=== PATIENT | male | born 1965 | race African-American/Black ===

== ENCOUNTER 2018-10-14 04:08 | Emergency (ER) | payer MEDICARE, OTHER ==
[~2018-10-14] VITALS: Ht 175.3 cm; Wt 99.8 kg
[2018-10-14 04:12] VITALS: BP 137/92
--- NOTE | 2018-10-14 04:12 | NUR ---
ED Nurse Note: Pt was VAN from a street, c/o " I feel like to have a seizure". Pt is A/O X 4, Vital signs stable at this time, waiting orders.
[2018-10-14] MEDS ORDERED: QUETIAPINE FUMA25 MG ORAL (04:16)
[2018-10-14] MEDS ORDERED: GABAPENTIN400 MG ORAL (04:16)
[2018-10-14] MEDS ORDERED: TRAZODONE HCL150 MG ORAL (04:16)
[2018-10-14] MEDS ORDERED: Ketorolac 60mg Inj IM ONE (04:45)
[2018-10-14] MEDS ORDERED: IBUPROFEN600 MG ORAL (04:45)
--- NOTE | 2018-10-14 04:45 | Emergency Room Report ---
History of Present Illness General Chief Complaint: General Complaint Source: Patient Present Illness HPI Is a 52-year-old male with history of seizure, psychiatric history and chronic pain. Patient called [address] because he said he fell he is having a seizure. Also complaining of sciatic pain. Pain is 10 out of 10. No nausea no vomiting. No fever chills. The demented better. Nothing made it worse. He said he felt like he's having a seizure. Said that he's on Dilantin but hasn 't had it for a month. Also said that he is out of his pain medication. Allergies: Coded Allergies: No Known Allergies (Unverified , 10/14/18) Patient History Past Medical History: see triage record, old chart reviewed, seizures Past Surgical History: other Pertinent Family History: none Social History: Reports: drug use - History of cocaine abuse; Denies: smoking Immunizations: other Reviewed Nursing Documentation: PMH: Agreed; PSxH: Agreed Nursing Documentation-PMH Past Medical History: No History, Except For Hx Seizures: Yes Review of Systems Eye: Denies: eye pain, blurred vision ENT: Denies: ear pain, nose congestion, throat swelling Respiratory: Denies: cough, shortness of breath Cardiovascular: Denies: chest pain, palpitations Gastrointestinal: Denies: abdominal pain, diarrhea, nausea, vomiting Musculoskeletal: Reports: back pain; Denies: joint pain Skin: Denies: rash Neurological: Denies: headache, numbness Endocrine: Denies: increased thirst, increased urine Hematologic/Lymphatic: Denies: easy bruising All Other Systems: negative except mentioned in HPI Physical Exam Vital Signs Date Time Temp Pulse Resp B/P (MAP) Pulse Ox O2 Delivery O2 Flow Rate FiO2 10/14/18 04:10 98.2 86 18 138/94 98 Nasal Cannula vitals tripp Sp02 EP Interpretation: reviewed, normal General Appearance: well appearing, no apparent distress, alert Head: normocephalic, atraumatic Eyes: bilateral eye PERRL, bilateral eye EOMI ENT: hearing grossly normal, normal pharynx Neck: full range of motion, supple, no meningismus Respiratory: chest non-tender, lungs clear, normal breath sounds Cardiovascular #1: regular rate, rhythm, no murmur Gastrointestinal: normal bowel sounds, non tender, no mass, no organomegaly, no bruit, non-distended Musculoskeletal: back normal - diffuse pain. no trauma, gait/station normal, normal range of motion Neurologic: alert, oriented x3 Psychiatric: mood/affect normal Skin: warm/dry Medical Decision Making Diagnostic Impression: Primary Impression: Low back pain Qualified Codes: M54.5 - Low back pain ER Course Patient presents with exacerbation of his chronic pain. Initially he claimed that he is out of his pain medication and need to be get up next week. When I told him that I checked the [employer] system and he just picked up 120 tablets of [place] 10/325 she has 5 days ago. He then claimed that he had kicked out of his apartment that he staying with a friend and that person has his medicine. He has a book back to has a hospital sticker for last month. It was full of DVDs. Patient claimed that he was in a long term. I called a [address] [facility] and patient had previous prescription for Dilantin but that was November 2017. He was also on trazodone, Wellbutrin, Seroquel , Zyprexa. These were less picked up a month ago. I see no evidence of any seizure activity in this patient. Patient may be having withdrawal if he is out of his pain medication. He has a history of cocaine abuse. I told patient I'm not comfortable prescribing controlled substances with patient who has a history of drug abuse and also on a very large number of opiates already. I no evidence of of cauda equina syndrome, spinal epidural abscess or neoplastic process. We'll discharge home. Last Vital Signs Date Time Temp Pulse Resp B/P (MAP) Pulse Ox O2 Delivery O2 Flow Rate FiO2 10/14/18 04:15 83 18 Room Air 10/14/18 04:12 98.2 137/92 98 Status: improved Disposition: HOME, SELF-CARE Condition: Stable Scripts Ibuprofen* (MOTRIN*) 600 Mg Tablet 600 MG ORAL THREE TIMES A DAY, #30 TAB 0 Refills Prov: Kyrie Turner MD 10/14/18 Additional Instructions: Take your pain medication. He was picked up the 120 tablets 5 days ago. Follow -up your doctor in a week. Return if symptom worsen. Kyrie Turner MD Oct 14, 2018 04:45
[2018-10-14 05:12] VITALS: BP 134/91
--- NOTE | 2018-10-14 05:12 | NUR ---
ER DISCHARGE NOTE: Patient is cleared to be discharged per Dr. Turner. Pain Meds given as ordered. Pt is A/O x4 on room air with stable vital signs. Pt was given D/C instructions and was able to verbalize understanding. Pt's ID band removed. Pt is able to ambulate with steady gait and took all belongings.
== END 2018-10-14 05:12 | disposition home or self-care (01) ==
LOC: EDBD 04:08 → EMR 04:35
DX: M54.5 Low back pain (principal); G40.909 Epilepsy, unspecified, not intractable, without status epilepticus; Z91.14 Patient's other noncompliance with medication regimen; G89.29 Other chronic pain
CPT/HCPCS: 96372; 99283